=== PATIENT | male | born 1980 | race Caucasian/White ===

== ENCOUNTER 2016-06-16 21:33 | Emergency (ER) | payer MEDICARE, OTHER ==
[2016-06-16 21:33] VITALS: BP 125/70
[~2016-06-16 21:33] MED LIST: AZIT250T6 PO; CEPH-264 PO; CYCL10TA2 PO; FAMO-63 PO; HYDR1TAB10 PO; IBUP200T43 PO; IBUP200T5 PO; IBUP800T PO; ONDA8TAB12 PO; POTA10CA PO; RANI150T6 PO
--- NOTE | 2016-06-16 22:06 | ED.ADGEN ---
Past History Past Medical History: Other Past Surgical History: No Surgical History Smoking: Non-smoker Alcohol Use: None Drug Use: None Adult General [facility] HPI Patient is a 35-year-old male presents emergency Department with a 2 hour history of right flank pain. Patient states he has not had this pain before. He did ambulate here without any difficulty from home. He has had no prehospital intervention. Patient denies any fever, chills, nausea, vomiting. Review of Systems Review of Systems Constitutional: Denies fever or chills [] Eyes: Denies change in visual acuity, redness, or eye pain [] HENT: Denies nasal congestion or sore throat [] Respiratory: Denies cough or shortness of breath [] Cardiovascular: No additional information not addressed in HPI [] GI: Denies abdominal pain, nausea, vomiting, bloody stools or diarrhea [] : Denies dysuria or hematuria [] Musculoskeletal: Denies back pain or joint pain [] Integument: Denies rash or skin lesions [] Neurologic: Denies headache, focal weakness or sensory changes [] Endocrine: Denies polyuria or polydipsia [] Allergies Allergies Allergies Coded Allergies Type Severity Reaction Last Updated Verified Penicillins Allergy Intermediate 08/23/14 Yes Physical Exam Physical Exam Constitutional: Well developed, well nourished, no acute distress, non-toxic appearance. [] HENT: Normocephalic, atraumatic, bilateral external ears normal, oropharynx moist, no oral exudates, nose normal. [] Eyes: PERRLA, EOMI, conjunctiva normal, no discharge. [] Neck: Normal range of motion, no tenderness, supple, no stridor. [] Cardiovascular:Heart rate regular rhythm, no murmur [] Lungs & Thorax: Bilateral breath sounds clear to auscultation [] Abdomen: Bowel sounds normal, soft, no tenderness, no masses, no pulsatile masses. [] Skin: Warm, dry, no erythema, no rash. [] Back: No tenderness, no CVA tenderness. [] Extremities: No tenderness, no cyanosis, no clubbing, ROM intact, no edema. [] Neurologic: Alert and oriented X 3, normal motor function, normal sensory function, no focal deficits noted. [] Psychologic: Affect normal, judgement normal, mood normal. [] Current Patient Data Lab Results Laboratory Tests Test 06/16/16 22:20 Urine Collection Type Unknown Urine Color Noelle Urine Clarity Clear Urine pH 6.0 Urine Specific [place] >=1.030 Urine Protein 30 mg/dl (NEG-TRACE) Urine Glucose (UA) Negmg/dL (NEG) Urine Ketones (Stick) Negmg/dL (NEG) Urine Blood Neg (NEG) Urine Nitrite Neg (NEG) Urine Bilirubin Small (NEG) Urine Urobilinogen Dipstick 4mg/dL (0.2 mg/dL) Urine Leukocyte Esterase Neg (NEG) EKG EKG [] Radiology/Procedures Radiology/Procedures [] Course & Med Decision Making Course & Med Decision Making Pertinent Labs and Imaging studies reviewed. (See chart for details) The patient's urine is reassuring. Based on the patient's description of the pain as well as the location of the pain is muscle skeletal. We discussed supportive care as well as follow-up instructions. [] Final Impression Final Impression Right flank pain [] Problems: Dragon Disclaimer Dragon Disclaimer This electronic medical record was generated, in whole or in part, using a voice recognition dictation system. WAI FISHMAN MD Jun 16, 2016 22:06
[2016-06-16 22:31] LABS: CLARITY,URINE CLEAR; COLOR,URINE AMBER; GLUCOSE,URINE NEG (NEG)
[2016-06-16 22:32] LABS: BILIRUBIN,URINE SMALL (NEG); NITRITE,URINE NEG (NEG); UROBILINOGEN,URINE 4 mg/dL (0.2 mg/dL)
== END 2016-06-16 22:35 | disposition home or self-care (01) ==
LOC: ER 21:49
DX: R10.9 Unspecified abdominal pain (principal); Z88.0 Allergy status to penicillin
CPT/HCPCS: 81003; 99282

== ENCOUNTER 2016-06-25 01:02 | Emergency (ER) | payer MEDICARE, OTHER ==
[~2016-06-25] VITALS: Ht 182.9 cm; Wt 136.1 kg
[2016-06-25 01:02] VITALS: BP 124/82
--- NOTE | 2016-06-25 01:33 | PHYS DOC ---
General Chief Complaint: WRIST PAIN Stated Complaint: LEFT WRIST PAIN Time Seen by MD: 01:25 Source: patient Problems: History of Present Illness Initial Comments Patient here with multiple complaints of pain. He says he is here because of left wrist, right hip, back pain, and headache. Patient states his been going on for the last several hours but when asked about his multiple previous ER visits and how long these had pain like this, he states his been going on for anywhere between 5 and 10 years. When [facility], he says that the Motrin that he takes at home was not helping. I did ask him about his history of frequent ER use. This is his fourth visit this month alone. As he has a primary care doctor he says he does, but he is unable to make cell phone calls because his phone services out, though he can use Wi-Fi. He has not asked a friend to use his phone and make an appointment with his doctor. Patient says he had a headache but is really unable to find. There is no fever chills URI symptoms or cough. There's no vision or speech changes. There is no neck pain. He claims he has low back pain. There's no new history of injury or trauma to the area. He has no nausea vomiting or abdominal pain. There is no change amount of bladder habits. There is no, it's. Patient states he has right hip pain and then it also notes that he has left knee pain, both of which barely followed some sort of accident [email or web address] in a number of years ago. He is also complaining of left wrist pain which is not sure how long its been going on. There is again no history of injury or trauma. There is no distal complaints weakness numbness or tingling with left wrist or hand. There is no other acute focal extremity or neurologic complaints noted. Patient she's Motrin at home for this without help. He notes no other increasing or decreasing factors. Patient's past medical history according to him is otherwise unremarkable. He states he takes some sort of white pill twice a day but doesn't know what it is or what for. He does note that he was in [employer], one does get the sense of some developmental delay. He is a nonsmoker and nonuser of ethanol. Allergies: Coded Allergies: Penicillins (Verified Allergy, Intermediate, 08/23/14) Past Medical History Medical History: other Surgical History: no surgical history, other Family History Significant Family History: no pertinent family hx Social History Smoker: non-smoker Alcohol: none Review of Systems All Other Systems: Reviewed and Negative Physical Exam General Appearance: WD/WN, no apparent distress Eyes: bilateral eye EOMI, bilateral eye PERRL, bilateral eye normal inspection Ear, Nose, Throat: normal ENT inspection, normal pharynx Neck: full range of motion, supple, normal inspection Respiratory: lungs clear, normal breath sounds, no respiratory distress Cardiovascular: regular rate, rhythm, no edema Gastrointestinal: non tender, soft, no organomegaly Back: no CVA tenderness, no vertebral tenderness Extremities: non-tender, normal inspection, no pedal edema Neurologic/Psychiatric: take off worker II-XII nml as tested, no motor/sensory deficits, alert, normal mood/affect, oriented x 3 Skin: normal color Lymphatic: no adenopathy Comments Generally this is a well-developed well-nourished obese white male in no acute distress. Vitals are as noted. Pertinent findings on physical exam shows the head is atraumatic normocephalic. Scalp is fully nontender. Pupils equal reactive light and accommodation. Extra ocular movements are intact. Ears and throat are clear. Neck is supple without adenopathy or JVD. There's no meningeal signs. There is no bony C-spine or paraspinal tenderness. Chest is clear and cardiac [place] exams unremarkable. Abdomen is soft and nontender without mass or megaly. Is no perineal findings. Back shows no CVA tenderness. He has no tenderness over the lumbar spine or the paraspinal regions, though he states he has some chronic back pain in the low lumbar spine. No signs of trauma. Externally show no rashes, cyanosis, or edema. He has no real tenderness over the right hip. Examination of left wrist shows no signs of trauma. Has good full Maisch range of motion of the wrist with no hand motor, sensory, vascular deficits appreciated. No signs of injury or trauma. No swelling and no bony deformity and no tenderness. Neurologic exam shows patient awake alert and oriented. Cranial nerves II through XII grossly intact. Strength is 5 over 5 and equal all sites tested. There are no gross sensory deficits. He is noted to ambulate without difficulty and the ER. As noted, is complaining of left wrist pain, he is noted to manipulate objects such as a cell phone with his left hand and wrist without difficulty. As noted, one does get the sense of some developmental delay. Remainder of physical exam is clinically unremarkable. Orders, Labs, Meds Old charts note this is the patient's fourth visit here this month alone. He has been seen for reflux, left forearm pain, and flank pain. In reviewing his records, it seems that he comes to the ER and spurts over the last several years , several visits within several weeks, and then vanishes for several months. I discussed with the patient the uncertain cause of his chronic discomfort. He may have some chronic muscular skeletal pain, but I discussed with him that at this time, is not sure is anything more that we need to do for this acutely. He certainly is in no acute discomfort or distress there is no obvious signs of injury or inflammation. There is no functional deficits. I suggested that rather than Motrin, he might try Aleve and Erlinda products to see if that gives him any better result. I'll write this product name down on a prescription blank for him as well. The biggest thing he continue to try to follow up with his primary care physician, even if he has to borrow friend's phone call, and set up an appointment for his multiple chronic complaints. He voices understanding and agreement with the discharge plan and the need for follow-up. He looks well, in no acute discomfort or stress, and okay for discharge home at this time. As noted, I have completed a full medical screening exam and found no acute ongoing issues tonight. BHAVIN DE LA CRUZ MD Jun 25, 2016 01:33
== END 2016-06-25 01:37 | disposition home or self-care (01) ==
LOC: ER 01:02
DX: M25.532 Pain in left wrist (principal); M25.551 Pain in right hip; M25.562 Pain in left knee; R51 Headache; M54.9 Dorsalgia, unspecified; G89.29 Other chronic pain; Z88.0 Allergy status to penicillin
CPT/HCPCS: 99282

== ENCOUNTER 2016-08-18 21:31 | Emergency (ER) | payer MEDICARE, OTHER ==
[~2016-08-18] VITALS: Ht 182.9 cm; Wt 136.1 kg
[~2016-08-18 21:31] MED LIST changes: +CYCL-331 PO; -CYCL10TA2 PO; +IBUP-1227 PO; -IBUP200T5 PO; -IBUP800T PO; +IBUP800T19 PO
[2016-08-18 21:35] VITALS: BP 137/80
--- NOTE | 2016-08-18 21:47 | ED.ADGEN ---
Past History Past Medical History: No Pertinent History Past Surgical History: No Surgical History Smoking: Non-smoker Alcohol Use: None Drug Use: None Adult General Chief Complaint Chief Complaint Right heel pain HPI HPI Patient is a 35 year old male who presents with pain. He states it started hurting yesterday. He's been taking Aleve for it. It hurts worse when he is trying to walk. He denies any injury to it. He denies any fevers chills nausea or vomiting. Review of Systems Review of Systems Constitutional: Denies fever or chills [] Eyes: Denies change in visual acuity, redness, or eye pain [] HENT: Denies nasal congestion or sore throat [] Respiratory: Denies cough or shortness of breath [] Cardiovascular: No additional information not addressed in HPI [] GI: Denies abdominal pain, nausea, vomiting, bloody stools or diarrhea [] : Denies dysuria or hematuria [] Musculoskeletal: Denies back pain or joint pain [] Integument: Denies rash or skin lesions [] Neurologic: Denies headache, focal weakness or sensory changes [] Endocrine: Denies polyuria or polydipsia [] Allergies Allergies Allergies Coded Allergies Type Severity Reaction Last Updated Verified Penicillins Allergy Intermediate 08/23/14 Yes Physical Exam Physical Exam Constitutional: Well developed, well nourished, no acute distress, non-toxic appearance. [] HENT: Normocephalic, atraumatic, bilateral external ears normal, oropharynx moist, no oral exudates, nose normal. [] Eyes: PERRLA, EOMI, conjunctiva normal, no discharge. [] Neck: Normal range of motion, no tenderness, supple, no stridor. [] Cardiovascular:Heart rate regular rhythm, no murmur [] Lungs & Thorax: Bilateral breath sounds clear to auscultation [] Abdomen: Bowel sounds normal, soft, no tenderness, no masses, no pulsatile masses. [] Skin: Warm, dry, no erythema, no rash. [] Back: No tenderness, no CVA tenderness. [] Extremities: Tender to palpation in the posterior aspect of his right heel near the attachment at the Achilles, Achilles intact, no cyanosis, no clubbing, ROM intact, no edema. [] Neurologic: Alert and oriented X 3, normal motor function, normal sensory function, no focal deficits noted. [] Psychologic: Affect normal, judgement normal, mood normal. [] EKG EKG [] Radiology/Procedures Radiology/Procedures 3 views of the right foot does not show any bony abnormalities, soft tissue abnormalities, foreign bodies, as interpreted by me. Course & Med Decision Making Course & Med Decision Making Pertinent Labs and Imaging studies reviewed. (See chart for details) X-rays are nonacute. He is tender around the insertion of the Achilles tendon on the right heel, this could be tendinitis. We'll discharge with [place] pain meds, he is also use Aleve and Epsom salt soaks. He is agreeable to the plan and being discharged in stable condition this time. Final Impression Final Impression Right heel pain Problems: Dragon Disclaimer Dragon Disclaimer This electronic medical record was generated, in whole or in part, using a voice recognition dictation system. RONALDO BANEGAS MD August 18, 2016 21:47
[2016-08-18] MEDS ORDERED: HYDR-971 PO (22:43)
--- NOTE | 2016-08-19 07:38 | RAD ---
Right foot, 3 views, 08/18/2016: History: Heel pain No fracture or destructive bony lesion is seen. No significant arthritic change is evident. There is mild subcutaneous edema. IMPRESSION: No acute bony abnormality is detected.
== END 2016-08-18 22:45 | disposition home or self-care (01) ==
LOC: ER 21:31
DX: M79.671 Pain in right foot (principal); Z88.0 Allergy status to penicillin
CPT/HCPCS: 73630; 99284

== ENCOUNTER 2016-08-24 21:16 | Emergency (ER) | payer MEDICARE, OTHER ==
[~2016-08-24] VITALS: Ht 182.9 cm; Wt 136.3 kg
[~2016-08-24 21:16] MED LIST changes: +HYDR-971 PO
[2016-08-24 21:25] VITALS: BP 135/98
--- NOTE | 2016-08-24 21:46 | PHYS DOC ---
Past History Past Medical History: No Pertinent History Additional Past Medical Histor: developmental delay mild learning disability Past Surgical History: No Surgical History Smoking: Non-smoker Alcohol Use: Occasionally Drug Use: None Adult General Chief Complaint Chief Complaint: KNEE INJURY HPI HPI Patient is a pleasant 35-year-old male with a history of learning disability presents with knee pain that began several days ago after walking. Patient walks a great deal noted some soreness to the inferior portion of the patella on the right knee with no localized swelling no fullness no weakness in the joint itself and no laxity. Patient denies any direct trauma denies any rotational injury. Denies any fevers, chills, rash, prior sexually transmitted diseases. Patient denies any prior recent surgeries. Or travel. Review of Systems Review of Systems Constitutional: Denies fever or chills [] Eyes: Denies change in visual acuity, redness, or eye pain [] HENT: Denies nasal congestion or sore throat [] Respiratory: Denies cough or shortness of breath [] Cardiovascular: No additional information not addressed in HPI [] GI: Denies abdominal pain, nausea, vomiting, bloody stools or diarrhea [] : Denies dysuria or hematuria [] Musculoskeletal: Complaint of primarily of right knee pain Integument: Denies rash or skin lesions [] Neurologic: Denies headache, focal weakness or sensory changes [] Endocrine: Denies polyuria or polydipsia [] Allergies Allergies Allergies Coded Allergies Type Severity Reaction Last Updated Verified Penicillins Allergy Intermediate 08/23/14 Yes Physical Exam Physical Exam Constitutional: Well developed, well nourished, no acute distress, non-toxic appearance. [] Cardiovascular:Heart rate regular rhythm, no murmur [] Lungs & Thorax: Bilateral breath sounds clear to auscultation [] Skin: Warm, dry, no erythema, no rash. [] Back: No tenderness, no CVA tenderness. [] Extremities: Mild tenderness inferior to the patella over the patellar insertion on the proximal tibia. There is no warmth, no soft tissue swelling, no effusion, negative Ernestine's negative anterior posterior draw negative Aniya's stress test. Neurologic: Alert and oriented X 3, normal motor function, normal sensory function, no focal deficits noted. [] Current Patient Data Vital Signs Vital Signs Date Time Temp Pulse Resp B/P (MAP) Pulse Ox O2 Delivery O2 Flow Rate FiO2 08/24/16 21:25 98.0 88 20 99 Room Air EKG EKG [] Radiology/Procedures Radiology/Procedures X-ray timed 2141 date 08/24/2016 3 view right knee films demonstrate no acute fracture identified on plain film, no acute effusion, doubt hemarthrosis, no foreign body or soft tissue swelling noted. Plain film read by Dr. Ortega. [] Course & Med Decision Making Course & Med Decision Making Pertinent Labs and Imaging studies reviewed. (See chart for details) After reviewing nursing notes vital signs and plain films while history and physical are been recorded above patient with patellar bursitis likely based on history and physical findings. Doubt septic joint, localized fracture like tibial plateau fracture or significant effusion. We'll provide NSAIDs and follow -up with orthopedics and primary doctor. Impression: Patellar tendinitis, knee pain without clear signs of ligamentous injury. Disposition: PCP follow-up, NSAIDs, physical therapy. [] Dragon Disclaimer Dragon Disclaimer This chart was dictated in whole or in part using Voice Recognition software in a busy, high-work load, and often noisy Emergency Department environment. It may contain unintended and wholly unrecognized errors or omissions. Departure Departure: Impression: Primary Impression: Knee pain Additional Impression: Patellar bursitis of right knee Disposition: HOME, SELF-CARE Condition: IMPROVED Referrals: USAMA KHAN (PCP) Patient Instructions: Knee - Patella Problems, Patellar Tendinitis, Jumper's Knee with [facility] Additional Instructions: These used Tylenol and [id number] Motrin for your symptoms. I would advise a follow-up with your primary care doctor for continued evaluation. Please return here for any increasing discomfort or if you have any questions or concerns. Scripts Naproxen (NAPROSYN) 500 Mg Tablet 1 TAB PO BID, #20 TAB 1 Refill Prov: VENU ORTEGA MD 08/24/16 Problem Qualifiers VENU ORTEGA MD August 24, 2016 21:46
[2016-08-24] MEDS ORDERED: NAPR500T PO (22:10)
[2016-08-24] MEDS ORDERED: KETOROLAC 60 MG/2 ML VIAL. IM ONE (22:30)
--- NOTE | 2016-08-25 08:33 | RAD ---
Right knee radiographs History: Right knee pain beginning today, no known trauma. Comparison: None. Findings: AP, lateral, and oblique views of the right knee. No acute fracture or dislocation is identified. No joint effusion is seen. Impression: No acute osseous traumatic injury identified.
== END 2016-08-24 22:17 | disposition home or self-care (01) ==
LOC: ER 21:16
DX: M70.41 Prepatellar bursitis, right knee (principal); Y93.01 Activity, walking, marching and hiking; Z88.0 Allergy status to penicillin
CPT/HCPCS: 73562; 96372; 99284; J1885; 99283-25

== ENCOUNTER 2016-09-06 10:33 | Emergency (ER) | payer MEDICARE, OTHER ==
[2016-09-06 10:33] VITALS: BP 142/86
[~2016-09-06 10:33] MED LIST changes: +NAPR500T PO
[2016-09-06] MEDS ORDERED: IBUPROFEN 600 MG TABLET. PO ONE (11:00)
--- NOTE | 2016-09-06 15:59 | ED.ADGEN ---
Past History Past Medical History: No Pertinent History Additional Past Medical Histor: developmental delay mild learning disability Past Surgical History: No Surgical History Smoking: Non-smoker Alcohol Use: None Drug Use: None Adult General Chief Complaint Chief Complaint Sunburn HPI HPI Patient is a 35-year-old male with history of mental disability well-known to this emergency department who presents by ambulance with sunburn to the lower legs. Patient's currently homeless residing friends and is been working outdoors for the past 1-2 days. Patient with first-degree sunburns over lower extremities above sock line extending to proximal knees. No blistering or cellulitis. No other symptoms or complaints. Review of Systems Review of Systems Review symptoms as per history of present illness. All other review symptoms are negative. Current Medications Current Medications Current Medications Medications (Trade) Dose Ordered Sig/Rosario Start Time Stop Time Status Last Admin Dose Admin Ibuprofen (Motrin) 600 mg 1X ONCE 09/06/16 11:00 09/06/16 11:23 DC 09/06/16 10:56 600 MG Allergies Allergies Allergies Coded Allergies Type Severity Reaction Last Updated Verified Penicillins Allergy Intermediate 08/23/14 Yes Physical Exam Physical Exam Constitutional: Well developed, well nourished, no acute distress, non-toxic appearance. HENT: Normocephalic, atraumatic, bilateral external ears normal, oropharynx moist, no oral exudates, nose normal. Eyes: PERRLA, EOMI, conjunctiva normal, no discharge. Neck: Normal range of motion, no tenderness, supple, no stridor. Cardiovascular:Heart rate regular rhythm, no murmur. Lungs & Thorax: Bilateral breath sounds clear to auscultation . Abdomen: Bowel sounds normal, soft, no tenderness, no masses, no pulsatile masses. Skin: First-degree sunburn of lower leg extending from sock line to proximal legs, Back: No tenderness, no CVA tenderness. Extremities: No tenderness, no cyanosis, no clubbing, ROM intact, no edema. Neurologic: Alert and oriented X 3, normal motor function, normal sensory function, no focal deficits noted. Psychologic: Affect normal, judgement normal, mood normal. Current Patient Data Vital Signs Vital Signs Date Time Temp Pulse Resp B/P (MAP) Pulse Ox O2 Delivery O2 Flow Rate FiO2 09/06/16 10:33 98.6 84 16 97 EKG EKG [] Radiology/Procedures Radiology/Procedures [] Course & Med Decision Making Course & Med Decision Making Pertinent Labs and Imaging studies reviewed. (See chart for details) [magda Reyes recommended with PCP follow-up. Patient encouraged to go to homeless group home during daytime due to excessive outdoor temperatures.] Final Impression Final Impression [First degree sunburn bilateral lower extremities] Problems: Dragon Disclaimer Dragon Disclaimer This electronic medical record was generated, in whole or in part, using a voice recognition dictation system. NELLA SIM DO Sep 06, 2016 15:59
== END 2016-09-06 10:57 | disposition home or self-care (01) ==
LOC: ER 10:33
DX: L55.0 Sunburn of first degree (principal); Z88.0 Allergy status to penicillin
CPT/HCPCS: 99283

== ENCOUNTER 2016-09-09 01:41 | Emergency (ER) | payer MEDICARE, OTHER ==
[2016-09-09 01:51] VITALS: BP 127/71
--- NOTE | 2016-09-09 02:12 | PHYS DOC ---
General Chief Complaint: TREMORS Stated Complaint: chills Time Seen by MD: 01:47 Source: patient Exam Limitations: no limitations Problems: History of Present Illness Initial Comments Patient is a 35-year-old male known to the department brought to the ED by EMS with chills. Patient states that he is homeless and earlier this evening he was walking and fell asleep on a brick wall. When he awoke he felt cold and had some rigors. He tried to make himself throw up and called EMS. EMS reports the patient tremors had essentially resolved upon their arrival vital signs were normal patient's only complaint was tremors and nausea. In the ED patient denies abdominal discomfort or diarrhea he's had no vomiting he denies travel or bad food exposure. He's had some muscle discomfort in his legs but says he walks a lot he denies headache chest pain difficulty breathing focal neurologic symptoms or fevers. ED VS: 98, 98, 20, 127/71, 97% RA Timing/Duration: 1/2 hour Severity: mild Modifying Factors: improves with other Associated Symptoms: fever/chills, other Allergies: Coded Allergies: Penicillins (Verified Allergy, Intermediate, 08/23/14) Past Medical History Medical History: other (developmental delay, learning disability) Surgical History: no surgical history, other Family History Significant Family History: no pertinent family hx Social History Smoker: non-smoker Alcohol: none Drugs: none Review of Systems Constitutional: see HPI, denies diaphoresis, denies fever, denies malaise EENTM: denies eye pain, denies ear pain, denies nose congestion, denies throat pain Respiratory: denies cough, denies shortness of breath, denies wheezing Cardiovascular: denies chest pain, denies palpitations, denies syncope Gastrointestinal: denies abdominal pain, denies constipation, denies diarrhea, denies vomiting Genitourinary: denies dysuria, denies frequency, denies hematuria Musculoskeletal: see HPI, denies back pain, denies joint swelling, denies neck pain Psychiatric/Neurological: denies headache, denies numbness, denies paresthesia , denies weakness Hematologic/Lymphatic: denies blood clots, denies easy bleeding, denies easy bruising Physical Exam General Appearance: mild distress (very poor hygiene), obese Eyes: bilateral eye normal inspection, bilateral eye PERRL, bilateral eye EOMI Ear, Nose, Throat: hearing grossly normal, normal ENT inspection, normal pharynx Neck: non-tender, supple Respiratory: normal breath sounds, no respiratory distress Cardiovascular: normal peripheral pulses, regular rate, rhythm Gastrointestinal: normal bowel sounds, non tender, soft Back: no CVA tenderness, no vertebral tenderness Extremities: normal range of motion, non-tender, normal inspection 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 40 mEq of Klor-Con given by mouth Patient has been sleeping since ED arrival. His vitals have remained stable he' s had no complaints he has had no nausea vomiting or diarrhea. Reassuring ED workup, potassium replacement by mouth in the ED and prescription moving forward. I discussed the treatment plan patient expressed agreement and understanding of same. Departure Time of Disposition: 02:59 Disposition: 01 HOME, SELF-CARE Diagnosis: hypokalemia Condition: GOOD Patient Instructions: Hypokalemia-Brief Additional Instructions: Activity as tolerated. Aggressive hydration with gatorade, water. OTC Tylenol/ibuprofen as needed. Rx: klor-con 20meq bid x 3days Follow up with a doctor Wednesday for recheck of symptoms/labs. Return to ED with new or changing symptoms. ZEN OREILLY DO Sep 09, 2016 02:12
[2016-09-09] MEDS ORDERED: ONDANSETRON ODT 4 MG TAB.RAPDIS PO ONE (02:15)
[2016-09-09] MEDS ORDERED: ONDANSETRON ODT 4 MG TAB.RAPDIS ONE (02:22)
[2016-09-09 02:31] LABS: BASO # 0.1 x10^3/uL (0.0-0.2); BASO % 1 % (0-3); EOS # 0.2 x10^3/uL (0.0-0.7); EOS % 2 % (0-3); HEMATOCRIT 42.6 % (39.0-53.0); HEMOGLOBIN 14.2 g/dL (13.0-17.5); LYMPH # 1.5 x10^3/uL (1.0-4.8); LYMPH % 13 % (24-48); MEAN CORPUSCULAR HEMOGLOBIN 30 pg (25-35); MEAN CORPUSCULAR HGB CONC 33 g/dL (31-37); MEAN CORPUSCULAR VOLUME 89 fL (79-100); MONO # 0.4 x10^3/uL (0.0-1.1); MONO % 4 % (0-9); NEUT # 9.2 x10^3uL (1.8-7.7); NEUT % 81 % (31-73); PLATELET COUNT 141 x10^3/uL (140-400); RED BLOOD COUNT 4.79 x10^6/uL (4.30-5.70); RED CELL DISTRIBUTION WIDTH 14.3 % (11.5-14.5); WHITE BLOOD COUNT 11.4 x10^3/uL (4.0-11.0)
[2016-09-09 02:41] LABS: ALBUMIN 3.8 g/dL (3.4-5.0); ALBUMIN/GLOBULIN RATIO 1.4 (1.0-1.7); CALCIUM 8.2 mg/dL (8.5-10.1); CREATININE 1.3 mg/dL (0.7-1.3); GFR 63.2; TOTAL BILIRUBIN 2.2 mg/dL (0.2-1.0); TOTAL PROTEIN 6.6 g/dL (6.4-8.2)
[2016-09-09] MEDS ORDERED: POTASSIUM CHLORIDE 20 MEQ TABLET.ER. PO ONE ×2 (03:00→03:23)
== END 2016-09-09 03:35 | disposition home or self-care (01) ==
LOC: ER 01:41
DX: E87.6 Hypokalemia (principal); R62.50 Unspecified lack of expected normal physiological development in childhood; F81.9 Developmental disorder of scholastic skills, unspecified; Z59.0 Homelessness; Z88.0 Allergy status to penicillin
CPT/HCPCS: 36415; 80053; 82550; 84484; 85027; 99284; Q0162

== ENCOUNTER 2017-11-01 14:51 | Emergency (ER) | payer MEDICARE, OTHER ==
[~2017-11-01] VITALS: Ht 182.9 cm; Wt 136.3 kg
[~2017-11-01 14:51] MED LIST changes: -IBUP200T43 PO; +IBUP200T44 PO; +NAPR-683 PO; -NAPR500T PO; +RANI150T21 PO; -RANI150T6 PO
[2017-11-01] MEDS ORDERED: IV NORMAL SALINE 1,000ML 1,000 ML IV SCH (15:15)
--- NOTE | 2017-11-01 15:19 | PHYS DOC ---
Past History Past Medical History: Other Additional Past Medical Histor: developmental delay mild learning disability Past Surgical History: No Surgical History Smoking: Non-smoker Alcohol Use: None Drug Use: None Adult General Chief Complaint Chief Complaint: HEAT EXPOSURE HPI HPI 37-year-old male patient with learning disability states he walked outside at hospital with her about couple hours to go to upon [place] and felt lightheadedness and dizzy and thinks he has heatstroke. Patient denies chest pain, shortness of breath, cough and congestion, fever and chills, neuro deficit , nausea and vomiting. Review of Systems Review of Systems Constitutional: Denies fever or chills [] Eyes: Denies change in visual acuity, redness, or eye pain [] HENT: Denies nasal congestion or sore throat [] Respiratory: Denies cough or shortness of breath [] Cardiovascular: No additional information not addressed in HPI [] GI: Denies abdominal pain, nausea, vomiting, bloody stools or diarrhea [] : Denies dysuria or hematuria [] Musculoskeletal: Denies back pain or joint pain [] Integument: Denies rash or skin lesions [] Neurologic: Reports dizziness, denies headache, focal weakness or sensory changes [] Endocrine: Denies polyuria or polydipsia [] All other systems were reviewed and found to be within normal limits, except as documented in this note. Current Medications Current Medications Current Medications Medications (Trade) Dose Ordered Sig/Rosario Start Time Stop Time Status Last Admin Dose Admin Sodium Chloride 1,000 ml @ 1,000 mls/hr Q1H 11/01/17 15:05 11/01/17 16:04 UNV Allergies Allergies Allergies Coded Allergies Type Severity Reaction Last Updated Verified Penicillins Allergy Intermediate 08/23/14 Yes Physical Exam Physical Exam Constitutional: Well nourished, mild distress, non-toxic appearance. [] HENT: Normocephalic, atraumatic, oropharynx moist, no oral exudates, nose normal. [] Eyes: PERRLA, EOMI, conjunctiva normal, no discharge. [] Neck: Normal range of motion, no tenderness, supple, no stridor. [] Cardiovascular:Heart rate regular rhythm, no murmur [] Lungs & Thorax: Bilateral breath sounds clear to auscultation [] Abdomen: Bowel sounds normal, soft, no tenderness, no masses, no pulsatile masses. [] Skin: Warm, dry, no erythema, no rash. [] Back: No tenderness, no CVA tenderness. [] Extremities: No tenderness, no cyanosis, no clubbing, ROM intact, no edema. [] Neurologic: Alert and oriented X 3, normal motor function, normal sensory function, no focal deficits noted. [] Psychologic: Affect normal, mood normal. [] EKG EKG EKG interpreted by me. EKG at 1459 showed normal sinus rhythm at rate of 89, no acute ST and T-wave abnormalities.[] Radiology/Procedures Radiology/Procedures [] Course & Med Decision Making Course & Med Decision Making Pertinent Labs reviewed. (See chart for details) Evaluation of patient in ER showed 37-year-old male patient with complaining of dizziness and feeling hot after walking outside focal problems. Patient had normal temperature with unremarkable physical exam. Labs showing marked elevation of CPK and CK-MB. Patient treated with IV fluid and felt better and tolerated oral intake. Patient instructed to avoid of exposure to heat. [] Dragon Disclaimer Dragon Disclaimer This electronic medical record was generated, in whole or in part, using a voice recognition dictation system. Departure Departure: Impression: Primary Impression: Heat exposure Additional Impressions: Dizziness Learning disability Morbid obesity Disposition: HOME, SELF-CARE (at 1711) Condition: IMPROVED Referrals: USAMA KHAN (PCP) Patient Instructions: Heat-Related Illness Additional Instructions: Drink plenty of liquids Follow-up with your primary care physician in 3-5 days Return to ER if not getting better Problem Qualifiers MADDI BRICENO MD Nov 01, 2017 15:19
[2017-11-01 15:31] LABS: BASO # 0.1 x10^3/uL (0.0-0.2); BASO % 1 % (0-3); EOS # 0.3 x10^3/uL (0.0-0.7); EOS % 4 % (0-3); HEMATOCRIT 46.7 % (39.0-53.0); HEMOGLOBIN 15.9 g/dL (13.0-17.5); LYMPH # 2.2 x10^3/uL (1.0-4.8); LYMPH % 26 % (24-48); MEAN CORPUSCULAR HEMOGLOBIN 30 pg (25-35); MEAN CORPUSCULAR HGB CONC 34 g/dL (31-37); MEAN CORPUSCULAR VOLUME 88 fL (79-100); MONO # 0.6 x10^3/uL (0.0-1.1); MONO % 7 % (0-9); NEUT # 5.4 x10^3uL (1.8-7.7); NEUT % 62 % (31-73); PLATELET COUNT 163 x10^3/uL (140-400); RED CELL DISTRIBUTION WIDTH 14.2 % (11.5-14.5); WHITE BLOOD COUNT 8.7 x10^3/uL (4.0-11.0)
[2017-11-01 15:51] LABS: ALBUMIN/GLOBULIN RATIO 1.2 (1.0-1.7); CALCIUM 9.2 mg/dL (8.5-10.1); CREATININE 1.2 mg/dL (0.7-1.3); GFR 68.5; POTASSIUM 3.6 mmol/L (3.5-5.1); TOTAL BILIRUBIN 1.9 mg/dL (0.2-1.0); TOTAL PROTEIN 7.3 g/dL (6.4-8.2)
[2017-11-01 16:28] LABS: BACTERIA,URINE 0 /HPF (0-FEW); BILIRUBIN,URINE NEG (NEG); CLARITY,URINE HAZY; COLOR,URINE YELLOW; GLUCOSE,URINE NEG (NEG); HYALINE CASTS, URINE FEW /HPF; NITRITE,URINE NEG (NEG); SQUAMOUS EPITHELIAL CELL,UR FEW /LPF; UROBILINOGEN,URINE 0.2 mg/dL (0.2 mg/dL)
[2017-11-01 16:48] LABS: BARBITURATES NEG (NEG); BENZODIAZEPINES NEG (NEG); CANNABINOIDS NEG (NEG); COCAINE NEG (NEG); METHADONE NEG (NEG); OPIATES NEG (NEG); PHENCYCLIDINE NEG (NEG)
[2017-11-01 16:51] LABS: AMPHETAMINE/METHAMPHETAMINE NEG (NEG)
[2017-11-01 17:04] VITALS: BP 110/58
== END 2017-11-01 17:18 | disposition home or self-care (01) ==
LOC: ER 14:51
DX: T67.5XXA Heat exhaustion, unspecified, initial encounter (principal); R42 Dizziness and giddiness; F81.89 Other developmental disorders of scholastic skills; E66.01 Morbid (severe) obesity due to excess calories; Z68.41 Body mass index [BMI] 40.0-44.9, adult; Z88.0 Allergy status to penicillin; X58.XXXA Exposure to other specified factors, initial encounter; Y93.89 Activity, other specified; Y92.89 Other specified places as the place of occurrence of the external cause; Y99.8 Other external cause status
CPT/HCPCS: 36415; 80053; 80307; 81001; 82553; 85025; 96360; 99284-25; G0479; J7030

== ENCOUNTER 2017-11-08 14:55 | Emergency (ER) | payer MEDICARE, OTHER ==
[~2017-11-08] VITALS: Ht 182.9 cm; Wt 127.0 kg
[2017-11-08] MEDS ORDERED: BENZONATATE 100 MG CAPSULE. PO ONE (15:45)
[2017-11-08] MEDS ORDERED: BENZ100C PO (15:58)
--- NOTE | 2017-11-08 15:58 | PHYS DOC ---
Past History Past Medical History: No Pertinent History Additional Past Medical Histor: developmental delay mild learning disability Past Surgical History: No Surgical History Smoking: Non-smoker Alcohol Use: None Drug Use: None Adult General Chief Complaint Chief Complaint: COUGH HPI HPI 37-year-old homeless male patient complaining of nonproductive cough for the last 2 days and feeling dizziness during episodes of cough without fever and chills, shortness of breath, sputum production, headache, sick contact. Review of Systems Review of Systems Constitutional: Denies fever or chills [] Eyes: Denies change in visual acuity, redness, or eye pain [] HENT: Denies nasal congestion or sore throat [] Respiratory: Reports cough, denies shortness of breath [] Cardiovascular: No additional information not addressed in HPI [] GI: Denies abdominal pain, nausea, vomiting, bloody stools or diarrhea [] : Denies dysuria or hematuria [] Musculoskeletal: Denies back pain or joint pain [] Integument: Denies rash or skin lesions [] Neurologic: Denies headache, focal weakness or sensory changes [] Endocrine: Denies polyuria or polydipsia [] All other systems were reviewed and found to be within normal limits, except as documented in this note. Current Medications Current Medications Current Medications Medications (Trade) Dose Ordered Sig/Rosario Start Time Stop Time Status Last Admin Dose Admin Benzonatate (Tessalon Perle) 100 mg 1X ONCE 11/08/17 15:45 11/08/17 15:46 UNV 11/08/17 15:54 100 MG Allergies Allergies Allergies Coded Allergies Type Severity Reaction Last Updated Verified Penicillins Allergy Intermediate 08/23/14 Yes Physical Exam Physical Exam Constitutional: Well well nourished, no acute distress, non-toxic appearance. [ ] HENT: Normocephalic, atraumatic, bilateral external ears normal, oropharynx moist, no oral exudates, nose normal. [] Eyes: PERRLA, EOMI, conjunctiva normal, no discharge. [] Neck: Normal range of motion, no tenderness, supple, no stridor. [] Cardiovascular:Heart rate regular rhythm, no murmur [] Lungs & Thorax: Bilateral breath sounds clear to auscultation [] Extremities: No tenderness, no cyanosis, no clubbing, ROM intact, no edema. [] Neurologic: Alert and oriented X 3, normal motor function, normal sensory function, no focal deficits noted. [] Psychologic: Affect normal, judgement normal, mood normal. [] Current Patient Data Vital Signs Vital Signs Date Time Temp Pulse Resp B/P (MAP) Pulse Ox O2 Delivery O2 Flow Rate FiO2 11/08/17 15:08 97.9 85 18 97 Room Air EKG EKG [] Radiology/Procedures Radiology/Procedures [] Course & Med Decision Making Course & Med Decision Making discharge: I've spoken with the patient and/or caregivers. I've explained the patient's condition, diagnosis and treatment plan based on information available to me at this time. I've answered the patient's and/or caregivers questions and addressed any concerns. The patient and/or caregivers have a good understanding the patient's diagnosis, condition and treatment plan as can be expected at this point. Vital signs have been stabilized. The patient's condition is stable for discharge from the emergency department. The patient will pursue further outpatient evaluation with her primary care provider or other designated consulting physician as outlined in the discharge instructions. Patient and/or caregivers are agreeable to this plan of care and follow-up instructions have been explained in detail. The patient and/or caregivers have received these instructions in written format and expressed understanding of these discharge instructions. The patient and her caregivers are aware that if any significant change in condition or worsening of symptoms should prompt him to immediately return to this of the closest emergency department. If an emergent department is not readily available I would encourage him to call 911. Dragon Disclaimer Dragon Disclaimer This electronic medical record was generated, in whole or in part, using a voice recognition dictation system. Departure Departure: Impression: Primary Impression: Cough Additional Impressions: Homeless Tobacco abuse Tobacco abuse counseling Disposition: HOME, SELF-CARE (at 1556) Condition: STABLE Referrals: USAMA KHAN (PCP) Patient Instructions: Cough, Adult, Smoking Cessation Additional Instructions: Drink plenty of liquids Follow-up with your primary care physician in 3-5 days Return to ER if not getting better Scripts Benzonatate (TESSALON PERLE) 100 Mg Capsule 1 CAP PO TID, #21 CAP Prov: MADDI BRICENO MD 11/08/17 Problem Qualifiers MADDI BRICENO MD Nov 08, 2017 15:58
[2017-11-08 16:07] VITALS: BP 136/80
== END 2017-11-08 16:09 | disposition home or self-care (01) ==
LOC: ER 14:55
DX: R05 Cough (principal); R42 Dizziness and giddiness; Z59.0 Homelessness; Z88.0 Allergy status to penicillin
CPT/HCPCS: 99283

== ENCOUNTER 2017-12-15 14:19 | Emergency (ER) | payer MEDICARE, OTHER ==
[~2017-12-15] VITALS: Ht 182.9 cm; Wt 120.5 kg
[~2017-12-15 14:19] MED LIST changes: +BENZ100C PO
[2017-12-15 14:33] VITALS: BP 100/65
--- NOTE | 2017-12-15 14:57 | PHYS DOC ---
Past History Past Medical History: No Pertinent History Additional Past Medical Histor: developmental delay mild learning disability Past Surgical History: No Surgical History Smoking: Non-smoker Alcohol Use: None Drug Use: None Adult General Chief Complaint Chief Complaint: LOWER EXT PAIN HPI HPI 37-year-old male presents with bilateral lower extremity pain. The patient states that he has been walking around a lot and his legs and feet are hurting. When he stops to rest the start feel better. It is very hot outside. He has been drinking water. He has not taken any [id number] medications for this pain. He denies any long plane or car rides. He has not noticed any swelling. He denies trauma. He denies fever or chills. Review of Systems Review of Systems Constitutional: Denies fever or chills [] Eyes: Denies change in visual acuity, redness, or eye pain [] HENT: Denies nasal congestion or sore throat [] Respiratory: Denies cough or shortness of breath [] Cardiovascular: No additional information not addressed in HPI [] GI: Denies abdominal pain, nausea, vomiting, bloody stools or diarrhea [] : Denies dysuria or hematuria [] Musculoskeletal: Bilateral lower extremity pain[] Integument: Denies rash or skin lesions [] Neurologic: Denies headache, focal weakness or sensory changes [] Endocrine: Denies polyuria or polydipsia [] All other systems were reviewed and found to be within normal limits, except as documented in this note. Current Medications Current Medications Current Medications Medications (Trade) Dose Ordered Sig/[facility] Start Time Stop Time Status Last Admin Dose Admin Naproxen (Naprosyn) 500 mg 1X ONCE 12/15/17 15:00 12/15/17 15:01 Allergies Allergies Allergies Coded Allergies Type Severity Reaction Last Updated Verified Penicillins Allergy Intermediate 08/23/14 Yes Physical Exam Physical Exam Constitutional: Well developed, well nourished, no acute distress, non-toxic appearance. [] HENT: Normocephalic, atraumatic, bilateral external ears normal, oropharynx moist, no oral exudates, nose normal. [] Eyes: PERRLA, EOMI, conjunctiva normal, no discharge. [] Neck: Normal range of motion, no tenderness, supple, no stridor. [] Cardiovascular:Heart rate regular rhythm, no murmur [] Lungs & Thorax: Bilateral breath sounds clear to auscultation [] Abdomen: Bowel sounds normal, soft, no tenderness, no masses, no pulsatile masses. [] Skin: Warm, dry, no erythema, no rash. [] Back: No tenderness, no CVA tenderness. [] Extremities: Bilateral lower extremities no swelling, ecchymosis, or deformity. [] Neurologic: Alert and oriented X 3, normal motor function, normal sensory function, no focal deficits noted. [] Psychologic: Affect normal, judgement normal, mood normal. [] Current Patient Data Vital Signs Vital Signs Date Time Temp Pulse Resp B/P (MAP) Pulse Ox O2 Delivery O2 Flow Rate FiO2 12/15/17 14:33 97.5 98 18 95 Room Air EKG EKG [] Radiology/Procedures Radiology/Procedures [] Course & Med Decision Making Course & Med Decision Making Pertinent Labs and Imaging studies reviewed. (See chart for details) I gave the patient 500 mg naproxen. After a period of rest, the patient was feeling better. He is stable for discharge at this time. [] Dragon Disclaimer Dragon Disclaimer This electronic medical record was generated, in whole or in part, using a voice recognition dictation system. Departure Departure: Referrals: USAMA KHAN (PCP) NELLA PALOMARES DO Dec 15, 2017 14:57
[2017-12-15] MEDS ORDERED: NAPROXEN 500 MG TABLET PO ONE (15:00)
== END 2017-12-15 15:25 | disposition home or self-care (01) ==
LOC: ER 14:19
DX: M79.605 Pain in left leg (principal); M79.604 Pain in right leg; Z88.0 Allergy status to penicillin
CPT/HCPCS: 99282

== ENCOUNTER 2018-07-01 17:21 | Emergency (ER) | payer MEDICARE, OTHER ==
[~2018-07-01] VITALS: Ht 182.9 cm; Wt 136.1 kg
[~2018-07-01 17:21] MED LIST changes: +HYDR-3165 PO; -HYDR-971 PO
--- NOTE | 2018-07-01 17:54 | ED.ADGEN ---
Past History Past Medical History: No Pertinent History, Anxiety Additional Past Medical Histor: developmental delay mild learning disability Past Surgical History: No Surgical History Smoking: Cigarettes Alcohol Use: None Drug Use: None Adult General Chief Complaint Chief Complaint ".. I ve been walking around the last two days.. and my feet are starting to hurt and swell..."...." I am stress out because my friends are fighting...".. " I ve been walking too much... this happen once before.. I came here in 2018 for same thing..." HPI HPI Patient is a 37 year old male who presents with above hx and complaints of edema and sore feet. Pt. localizes pain in transverse and longitudinal arch of feet. Neurovascular intact. Obvious signs of injury. No history of trauma with excessive walking. History of diabetes. No history immunosuppression.. No history of travel. No history of specific ill contacts. Patient does smoke. Patient seen for similar type complaint 2018. Patient normally follows Dr. Herrera. Review of Systems Review of Systems Constitutional: Denies fever or chills [] Eyes: Denies change in visual acuity, redness, or eye pain [] HENT: Denies nasal congestion or sore throat [] Respiratory: Denies cough or shortness of breath [] Cardiovascular: No additional information not addressed in HPI [] GI: Denies abdominal pain, nausea, vomiting, bloody stools or diarrhea [] : Denies dysuria or hematuria [] Musculoskeletal: Denies back pain or joint pain []complaints of bilateral foot Pain Integument: Denies rash or skin lesions [] Neurologic: Denies headache, focal weakness or sensory changes [] Endocrine: Denies polyuria or polydipsia [] All other systems were reviewed and found to be within normal limits, except as documented in this note. Family History Family History Noncontributory Current Medications Current Medications See nursing for home meds Allergies Allergies Allergies Coded Allergies Type Severity Reaction Last Updated Verified Penicillins Allergy Intermediate 08/23/14 Yes Physical Exam Physical Exam Constitutional: , no acute distress, non-toxic appearance. [] HENT: Normocephalic, atraumatic, bilateral external ears normal, oropharynx moist, no oral exudates, nose normal. []Very poor dentition Eyes: PERRLA, EOMI, conjunctiva normal, no discharge. [] Neck: Normal range of motion, no tenderness, supple, no stridor. [] Cardiovascular:Heart rate regular rhythm, no murmur [] Lungs & Thorax: Bilateral breath sounds equal at apex with scattered wheezes on auscultation [] Abdomen: Bowel sounds normal, soft, no tenderness, no masses, no pulsatile masses obese. Skin: Warm, dry, no erythema, no rash. [] Back: No tenderness, no CVA tenderness. [] Extremities: No tenderness, no cyanosis, no clubbing, ROM intact, no edema. [] Tender mid foot arches on palpation. Neurologic: Alert and oriented X 3, normal motor function, normal sensory function, no focal deficits noted. [] Psychologic: Affect anxious, judgement normal, mood normal. [] Current Patient Data Vital Signs Vital Signs Date Time Temp Pulse Resp B/P (MAP) Pulse Ox O2 Delivery O2 Flow Rate FiO2 07/01/18 17:35 98.5 92 22 96 Room Air EKG EKG [] Radiology/Procedures Radiology/Procedures [] Course & Med Decision Making Course & Med Decision Making Pertinent Labs and Imaging studies reviewed. (See chart for details). Patient practice better hygiene on foot care. 2 salt water soaks and then apply a and D ointment afterwards. Ice, elevation, rest,. Recommend patient get arch supports for his shoes. Patient keep follow-up primary care. Patient encouraged to stop smoking. Patient encouraged follow-up with Dentist. Return if any concerns. [] Final Impression Final Impression 1. Foot pain 2. Morbid obesity [] 3. Tobacco use 4. Dental caries Dragon Disclaimer Dragon Disclaimer This electronic medical record was generated, in whole or in part, using a voice recognition dictation system. Discharge Summary Visit Information Final Diagnosis Problems Medical Problems: (1) Foot pain, bilateral Status: Acute (2) Morbid obesity Status: Acute Brief Hospital Course Allergies Allergies Coded Allergies Type Severity Reaction Last Updated Verified Penicillins Allergy Intermediate 08/23/14 Yes Vital Signs Vital Signs Date Time Temp Pulse Resp B/P (MAP) Pulse Ox O2 Delivery O2 Flow Rate FiO2 07/01/18 17:35 98.5 92 22 96 Room Air Brief Hospital Course Mr. Carter is a 37 old male who presented with bilateral foot pain. Pt. pain localized in the transverse and longitudinal arches. Patient to wear arch supports. Follow up with primary. Discharge Information Condition at Discharge: Stable Disposition/Orders: D/C to Home Dischare Medications Active Scripts Active Tessalon Perle (Benzonatate) 100 Mg Capsule 1 Cap PO TID Naprosyn (Naproxen) 500 Mg Tablet 1 Tab PO BID [place] 5-325 Tablet (Hydrocodone Bit/Acetaminophen) 1 Each Tablet 1-2 Tab PO Q6HRS PRN Pepcid (Famotidine) 20 Mg Tablet 1 Tab PO BID Motrin Ib (Ibuprofen) 200 Mg Tablet 600 Mg PO Q8HRS PRN Cyclobenzaprine Hcl 10 Mg Tablet 1 Tab PO Q8HRS PRN Keflex (Cephalexin) 500 Mg Capsule 2 Cap PO BID Potassium Chloride 10 Meq Capsule.er 1 Cap PO DAILY Azithromycin Tablet (Azithromycin) 250 Mg Tablet 250 Mg PO DAILY Zofran Odt (Ondansetron) 8 Mg Tab.rapdis 8 Mg PO QID PRN Zantac (Ranitidine Hcl) 150 Mg Tablet 1 Tab PO BID Vicoprofen 200-7.5 Mg Tab (Hydrocodone/Ibuprofen) 1 Each Tablet 1 Tab PO PRN Q6HRS PRN Cyclobenzaprine Hcl 10 Mg Tablet 1 Tab PO BID Ibuprofen 800 Mg Tablet 1 Tab PO TID Take with food Reported Ibuprofen 200 Mg Tablet PO PRN Dragon Disclaimer This chart was dictated in whole or in part using Voice Recognition software in a busy, high-work load, and often noisy Emergency Department environment. It may contain unintended and wholly unrecognized errors or omissions. NICKIE HARRIS MD Jul 01, 2018 17:54
[2018-07-01 18:23] VITALS: BP 128/72
== END 2018-07-01 18:25 | disposition home or self-care (01) ==
LOC: ER 17:21
DX: M79.672 Pain in left foot (principal); M79.671 Pain in right foot; E66.01 Morbid (severe) obesity due to excess calories; K02.9 Dental caries, unspecified; F41.9 Anxiety disorder, unspecified; F17.210 Nicotine dependence, cigarettes, uncomplicated; Z68.41 Body mass index [BMI] 40.0-44.9, adult; Z88.0 Allergy status to penicillin
CPT/HCPCS: 99281